=== PATIENT | male | born 1960 | race Caucasian/White ===

== ENCOUNTER 2018-11-06 16:19 | Inpatient (IN) | payer OTHER ==
[~2018-11-06] VITALS: Ht 172.7 cm; Wt 93.1 kg
[2018-11-06 16:28] VITALS: BP 156/72
[2018-11-06] MEDS ORDERED: LIPITOR10 MG PO (16:32)
[2018-11-06 16:48] LABS: URINE BILIRUBIN NEGATIVE (Negative); URINE BLOOD 2+ (Negative); URINE CLARITY CLEAR; URINE COLOR YELLOW; URINE GLUCOSE-RANDOM NEGATIVE (Negative); URINE KETONES NEGATIVE (Negative); URINE LEUKOCYTES-REFLEX TRACE (Negative); URINE NITRITE-REFLEX NEGATIVE (Negative); URINE PROTEIN 2+ (Negative); URINE SPECIFIC GRAVITY 1.015 (1.005-1.030)
[2018-11-06 16:55] LABS: HEMATOCRIT 30.3 % (42.0-52.0); HEMOGLOBIN 9.5 gm/dL (14.0-18.0); MCH 18.9 pg (26.0-34.0); MCHC 31.3 g/dL (28.0-37.0); MCV 60.6 fL (80.0-100.0); MPV 8.5 fl. (7.2-11.1); NUCLEATED RBCS 0 /100WBC; PLATELET COUNT* 163 thou/uL (150-400); RDW-CV 21.1 % (10.5-14.5); WBC 14.8 thou/uL (4.0-11.0)
[2018-11-06 16:56] LABS: HYALINE CASTS 0-3 Few /LPF (None Seen); SQUAMOUS 0-3 Few /LPF (0-3)
[2018-11-06 16:57] LABS: MUCUS None Seen strn/LPF (None Seen); URINE RBC 3-10 Few /HPF (0-2); URINE WBC-REFLEX 6-15 Few /HPF (0-5)
[2018-11-06 16:58] LABS: BACTERIA-REFLEX 1-9 Few /HPF (None Seen); CRYSTALS None Seen /LPF (None Seen)
[2018-11-06 17:02] LABS: CALCIUM 8.7 mg/dL (8.5-10.1); CREATININE 1.2 mg/dL (0.6-1.3); POTASSIUM 4.5 mmol/L (3.5-5.1)
[2018-11-06 17:13] LABS: ALBUMIN 2.6 g/dL (3.4-5.0); INR 1.3; PROTIME 13.8 Seconds (9.20-11.50); TOTAL BILIRUBIN 0.7 mg/dL (<0.1-1.0); TOTAL PROTEIN 7.4 g/dL (6.4-8.2)
[2018-11-06 17:14] LABS: TROPONIN-I LEVEL 2.72 ng/mL (<0.06)
[2018-11-06 17:28] LABS: ABSOLUTE LYMPHOCYTES 0.3 thou/uL (0.8-5.3); ABSOLUTE MONOCYTES 0.3 thou/uL (0.0-1.2); ABSOLUTE NEUTROPHILS 14.2 thou/uL (1.6-8.1); METAMYELOCYTES 1 %; PLATELET ESTIMATE ADEQUATE
[2018-11-06 17:29] LABS: ANISOCYTOSIS 2+
[2018-11-06 17:30] LABS: HYPOCHROMASIA 2+; OVALOCYTES Occasional
[2018-11-06 17:31] LABS: MICROCYTES 3+
[2018-11-06 18:24] LABS: BE -2.3 mmol/L (-2 to +3); PCO2 26.8 mmHg (35.0-45.0); PO2 81.2 mmHg (75.0-100.0); pH 7.495 (7.340-7.450)
[2018-11-06 19:06] VITALS: BP 161/61
[2018-11-06 20:01] LABS: CALCIUM 7.9 mg/dL (8.5-10.1); CREATININE 1.1 mg/dL (0.6-1.3); POTASSIUM 4.3 mmol/L (3.5-5.1)
[2018-11-06 20:03] VITALS: BP 131/67
[2018-11-06 21:00] VITALS: BP 107/59
[2018-11-06 22:00] VITALS: BP 104/57
[2018-11-06 23:00] VITALS: BP 117/72
[2018-11-07] VITALS (37 sets, daily range): BP systolic 109–149; BP diastolic 63–90
[2018-11-07 00:21] LABS: HEMATOCRIT 25.9 % (42.0-52.0); HEMOGLOBIN 8.1 gm/dL (14.0-18.0); MCHC 31.1 g/dL (28.0-37.0); MCV 61.1 fL (80.0-100.0); MPV 8.6 fl. (7.2-11.1); RBC 4.25 mil/uL (4.50-6.00); RDW-CV 21.3 % (10.5-14.5)
[2018-11-07 00:33] LABS: CALCIUM 7.9 mg/dL (8.5-10.1); CREATININE 1.1 mg/dL (0.6-1.3); POTASSIUM 4.4 mmol/L (3.5-5.1)
[2018-11-07 00:42] LABS: ALBUMIN 2.1 g/dL (3.4-5.0); MAGNESIUM 1.9 mg/dL (1.8-2.4); TOTAL BILIRUBIN 0.7 mg/dL (<0.1-1.0); TOTAL PROTEIN 6.4 g/dL (6.4-8.2)
[2018-11-07 00:44] LABS: TROPONIN-I LEVEL 5.25 ng/mL (<0.06)
[2018-11-07 11:46] LABS: BE -4.9 mmol/L (-2 to +3); PCO2 28.1 mmHg (35.0-45.0); PO2 98.3 mmHg (75.0-100.0); pH 7.434 (7.340-7.450)
[2018-11-07 11:49] LABS: ABSOLUTE BASOPHILS 0.1 thou/uL (0.0-0.2); ABSOLUTE LYMPHOCYTES 0.3 thou/uL (0.8-5.3); ABSOLUTE MONOCYTES 1.5 thou/uL (0.0-1.2); ABSOLUTE NEUTROPHILS 14.6 thou/uL (1.6-8.1); BASOPHILS 0.6 %; EOSINOPHILS 0.2 %; HEMATOCRIT 26.3 % (42.0-52.0); HEMOGLOBIN 8.1 gm/dL (14.0-18.0); LYMPHOCYTES 1.8 %; MCH 18.9 pg (26.0-34.0); MONOCYTES 9.1 %; MPV 9.2 fl. (7.2-11.1); NUCLEATED RBCS 0 /100WBC; PLATELET COUNT* 77 thou/uL (150-400); POLYS 88.3 %; RDW-CV 21.3 % (10.5-14.5); WBC 16.6 thou/uL (4.0-11.0)
[2018-11-07 11:55] LABS: CALCIUM 7.7 mg/dL (8.5-10.1); CREATININE 0.9 mg/dL (0.6-1.3); POTASSIUM 3.9 mmol/L (3.5-5.1)
[2018-11-07 12:06] LABS: TROPONIN-I LEVEL 6.31 ng/mL (<0.06)
[2018-11-08] VITALS (29 sets, daily range): BP systolic 104–138; BP diastolic 62–89
[2018-11-08 04:03] LABS: HEMOGLOBIN 8.4 gm/dL (14.0-18.0); MCH 18.6 pg (26.0-34.0); MCV 61.9 fL (80.0-100.0); MPV 9.3 fl. (7.2-11.1); RBC 4.52 mil/uL (4.50-6.00); RDW-CV 22.1 % (10.5-14.5); WBC 13.8 thou/uL (4.0-11.0)
[2018-11-08 04:17] LABS: ALBUMIN 2.2 g/dL (3.4-5.0); CALCIUM 8.4 mg/dL (8.5-10.1); CREATININE 0.9 mg/dL (0.6-1.3); PHOSPHORUS* 3.6 mg/dL (2.5-4.9); POTASSIUM 4.3 mmol/L (3.5-5.1); TOTAL BILIRUBIN 0.4 mg/dL (<0.1-1.0); TOTAL PROTEIN 6.5 g/dL (6.4-8.2)
--- NOTE | 2018-11-08 07:45 | CON ---
[address] [address] CONSULTATION Name: NANCYKIMALONZO Room: [address] ADM IN M.R.#: [id number] Admission: 11/06/18 Attend Phys: Abhijeet Mcmahan MD Discharge: Date of : 62 Report #: [id number] THIS REPORT FOR: //name// CC: Abhijeet Mcmahan Ce [place] DATE OF SERVICE: 11/07/2018 INFECTIOUS DISEASE CONSULTATION ATTENDING PHYSICIAN: Abhijeet Mcmahan M.D. REASON FOR EVALUATION: Gram-positive septicemia. HISTORY OF PRESENT ILLNESS: Chart reviewed, patient examined. This is a 57-year-old with history of hypertension, who otherwise notes very little medical history, has had intermittent issues with back pain. He states dating back to last year, he has had at least 3 episodes and most recently within the past week, was associated with some fevers and chills, he believes. He denies any anorexia or weight loss. He has had some progressive dyspnea, somewhat of a cough, there is no voice, smokes a significant amount throughout the evaluation. He had blood cultures collected now, 2/ with growth of gram-positive cocci. Lactic acid was mildly elevated at 2.3. Did have an elevated troponin at 3.86. CT of the chest showed no evidence of pulmonary embolus. Lungs were actually clear, otherwise chronic changes. CT of the abdomen was generally unrevealing as well. Did undergo x-ray of the lumbar spine that showed absence of compression fractures, spondylolisthesis, some arthrosis at L4-L5 and L5-S1. The white count was mildly elevated due to being somewhat hemodynamically unstable. He was empirically started on antimicrobial therapy with vancomycin. ALLERGIES: None known. MEDICATIONS: Current medicines include cefdinir, vancomycin, pantoprazole, ipratropium and albuterol inhaler, methylprednisolone, p.r.n. analgesics and antiemetics. PAST MEDICAL HISTORY: Hypertension, hyperlipidemia, chronic back pain. SOCIAL HISTORY: Smokes; a 11-trkq-fytv history, nav-hen-jiav packs per day for 40 years. No ethanol. No illicit drug use. FAMILY HISTORY: Noncontributory. REVIEW OF SYSTEMS: Otherwise unremarkable with the exception of the above. PHYSICAL EXAMINATION: [place] [address] CONSULTATION Name: ALONZO SAAB Room: [address] IN [facility].#: [id number] Admission: 11/06/18 Attend Phys: Abhijeet Mcmahan MD Discharge: Date of : 62 Report #: [id number] GENERAL: He is alert. He is in moderate distress. He is diaphoretic, appears somewhat chronically ill, mildly undernourished. VITAL SIGNS: Temperature 99.1 with a T-max of 102.3 last evening, pulse 101, respirations 18, blood pressure 142/79. SKIN: Warm, dry, no rashes. HEENT: Normocephalic. Extraocular muscles are intact. NECK: Supple. LUNGS: Diminished breath sounds. Few scattered crackles. HEART: Tachycardic, regular. I do not appreciate a murmur. ABDOMEN: Protuberant, somewhat firm. There is no overt tenderness. Lower extremities are without significant edema. GENITOURINARY: Deferred. RECTAL: Deferred. LABORATORY DATA: Lactic acid initially 2.3, serially done, now 1.7. Blood cultures as described above. Prealbumin of 4.9. Electrolytes: Sodium 124, potassium 4.4, chloride 92, bicarbonate is 21, anion gap of 11. BUN and creatinine of 26 and 1.1. Glucose 182. AST 56, ALT of 41. Albumin of 2.1, total protein 6.4. Estimated GFR of 69. CBC: White count of 16.0, H and H 8.1 and 25.9, platelets of 98. Compared to admission, white count was 14, hemoglobin 9.5 and platelets of 163. Differential showed lymphocytopenia of 300. Urinalysis 6-15 white cells. Chest x-ray, slight pulmonary congestion. Troponin level elevated at 3.86. Prealbumin of 4.9. ASSESSMENT: Gram-positive septicemia, certainly evidence would be consistent with true positive. We will continue the vancomycin, this should give us adequate coverage. Need to further investigate the back pain with new MRI. He remains quite tenuous at this point. Monitor expectantly. <ELECTRONICALLY SIGNED> By: Eliud Overton MD 11/08/18 0745 0800 [id number] Overton MD /nt
[2018-11-08 08:53] LABS: CHOLESTEROL 82 mg/dL (<200); HDL CHOLESTEROL 6 mg/dL (>40); LDL CHOLESTEROL 40 mg/dL (<100); TC:HDL 13.7 Ratio (Not establshd); TRIGLYCERIDE 183 mg/dL (<150); VLDL 37 mg/dL (<40)
[2018-11-08 08:54] LABS: SERUM ASSESSMENT Clear
--- NOTE | 2018-11-08 11:01 | EKG ---
[place] [address] ELECTROCARDIOGRAM REPORT Name: ALONZO SAAB Room: [address] ADM IN M.R.#: [id number] Admission: 11/06/18 Attend Phys: Abhijeet Mcmahan MD Discharge: Date of : 62 Report #: [id number] THIS REPORT FOR: //name// [facility] ED Test Date: 2018-11-06 Test Time: 16:45:44 Pat Name: ALONZO SAAB Department: Room: [facility] Gender: M Bag Grader: [facility] : 1960 Requested By: Daron Philippe Order Number: [id number] MD: Alonzo Colon Measurements Intervals [place] Rate: 128 P: 10 DC: 110 QRS: 39 QRSD: 100 T: 28 QT: 306 QTc: 447 Interpretive Statements Sinus tachycardia Atrial premature complex No previous ECG available for comparison Electronically Signed On 11-08-2018 11:01:08 CDT by Alonzo Colon [email or web address] <ELECTRONICALLY SIGNED> By: Alonzo Colon MD, [facility] 11/08/18 1101 1645 1645 Alonzo Colon MD, FACC /EPI
[2018-11-08 15:31] LABS: APTT 25.5 Seconds (25.0-31.3); INR 1.1; PROTIME 11.7 Seconds (9.20-11.50)
--- NOTE | 2018-11-08 18:15 | 2DMMODE ---
[place] [address] 2 D/M-MODE ECHOCARDIOGRAM Name: ALONZO SAAB Room: [address] IN .R.#: [id number] Admission: 11/06/18 Attend Phys: Abhijeet Mcmahan, Discharge: Date of : 62 Date of Service: 11/08/18 1815 Report #: [id number] THIS REPORT FOR: //name// APPROVED REPORT Study performed: 11/08/2018 10:54:55 EXAM: Comprehensive 2D, Doppler, and color-flow Echocardiogram Patient Location: In-Patient Room #: 219 Status: routine BSA: 2.07 HR: 74 bpm BP: 127/80 mmHg Rhythm: NSR Other Information Study Quality: Good Indications Acute CA Sepsis Dyspnea Mitral vegetation 2D Dimensions IVSd: 7.93 (7-11mm) LVOT Diam: 19.85 (18-24mm) LVDd: 52.19 mm PWd: 11.14 (7-11mm) Ascending Ao: 31.81 (22-36mm) LVDs: 31.36 (25-40mm) Aortic Root: 29.58 mm Volumes Left Atrial Volume (Systole) LA ESV Index: 43.60 mL/m2 Aortic Valve AoV Peak Samir.: 1.34 m/s AO Peak Gr.: 7.16 mmHg LVOT Max P.05 mmHg AO Mean Gr.: 4.13 mmHg LVOT Mean P.19 mmHg LVOT Max V: 1.33 m/s AO V2 VTI: 29.22 cm LVOT Mean V: 0.80 m/s BETHANY (VTI): 2.80 cm2 LVOT V1 VTI: 26.40 [place] [address] 2 D/M-MODE ECHOCARDIOGRAM Name: ALONZO SAAB Room: [address] IN M.R.#: [id number] Admission: 11/06/18 Attend Phys: Abhijeet Mcmahan, Discharge: Date of : 62 Date of Service: 11/08/18 1815 Report #: [id number] E/A Ratio: 1.42 MV Decel. Time: 230.08 ms MV E Max Samir.: 1.73 m/s MV PHT: 66.72 ms MVA (PHT): 3.30 cm2 TDI E/Lateral E': 19.22 E/Medial E': 19.22 Medial E' Samir.: 0.09 m/s Lateral E' Samir.: 0.09 m/s Pulmonary Valve PV Peak Samir.: 0.91 m/s PV Peak Gr.: 3.32 mmHg Tricuspid Valve RAP Estimate: 5.00 mmHg TR Peak Gr.: 40.39 mmHg RVSP: 45.00 mmHg PA Pressure: 45.00 mmHg Left Ventricle The left ventricle is normal size. There is normal LV segmental wall motion. There is normal left ventricular wall thickness. Left ventricular systolic function is normal. The left ventricular ejection fraction is within the normal range. LVEF is 60-65%. The left ventricular diastolic function is normal. Right Ventricle The right ventricle is normal size. The right ventricular systolic function is normal. Atria Left atrium is moderately dilated. The right atrium size is normal. Aortic Valve Mild aortic valve sclerosis. No aortic regurgitation is present. There is no aortic valvular stenosis. Mitral Valve There is mitral annular calcification. Mild mitral regurgitation. Mitral valve vegetation is present. No evidence of mitral valve stenosis. Tricuspid Valve The tricuspid valve is normal in structure. Mild tricuspid regurgitation. estimated pa pressure 45 [place] [address] 2 D/M-MODE ECHOCARDIOGRAM Name: ALONZO SAAB Room: [address] IN [facility]#: [id number] Admission: 11/06/18 Attend Phys: Abhijeet Mcmahan, Discharge: Date of : 62 Date of Service: 11/08/18 1815 Report #: [id number] Pulmonic Valve The pulmonary valve is normal in structure. There is no pulmonic valvular regurgitation. Great Vessels The aortic root is normal in size. IVC is normal in size and collapses >50% with inspiration. Pericardium There is no pericardial effusion. <Conclusion> LVEF is 60-65%. Left atrium is moderately dilated. Mild aortic valve sclerosis. Mild mitral regurgitation. Mild tricuspid regurgitation. estimated pa pressure 45 mm Hg Mitral valve vegetation is present. <ELECTRONICALLY SIGNED> By: Alonzo Colon MD, [facility] 11/08/181814 14 14 Alonzo Colon MD, FACC /INF
--- NOTE | 2018-11-11 17:49 | CON ---
[address] [address] CONSULTATION Name: NANCYKIMALONZO Room: [address] IN M.R.#: [id number] Admission: 11/06/18 Attend Phys: Abhijeet Mcmahan MD Discharge: 11/08/18 Date of : 62 Report #: [id number] THIS REPORT FOR: //name// CC: Abhijeet Asher CARDIOLOGY CONSULT INDICATION: Non-ST elevation myocardial infarction. HISTORY OF PRESENT ILLNESS: The patient is a very pleasant 57-year-old gentleman with no prior cardiac history. Cardiac risk factors include hypertension, dyslipidemia and chronic tobacco use. The patient was admitted through the Emergency Room yesterday with complaints of worsening shortness of breath and cough with brown sputum. He had had fevers and night sweats. He denied weight loss. Chest x-ray suggested bilateral perihilar infiltrates consistent with pneumonia. NT-proBNP was elevated consistent with heart failure. The patient's chest x-ray did not show significant pulmonary edema. The patient was placed on a heparin drip per cardiology protocol and empiric IV antibiotics. In the ICU, presently, he is clinically improving. Throughout this episode, he denied any chest pain. He has been having some chronic lower back pain since March. He was without other cardiac complaint. Of note, he was hypoxic in the Emergency Room. EKG shows sinus tachycardia with no significant ST segment changes. PAST MEDICAL HISTORY: 1. Hypertension. 2. Hyperlipidemia. 3. Chronic tobacco use. 4. Chronic back pain. FAMILY HISTORY: Noncontributory. SOCIAL HISTORY: The patient smokes 2-1/2 packs of cigarettes daily, does not drink alcohol. ALLERGIES: None. HOME MEDICATIONS: Atorvastatin 10 mg at bedtime. REVIEW OF SYSTEMS: He reports fevers and night sweats. He has mild anorexia. He reports cough without chest pain. He has production of brown sputum. He denies nausea or vomiting. There is no hematemesis or melena. He has shortness of breath at rest and dyspnea on exertion without significant orthopnea. He was without other [place] [address] CONSULTATION Name: ALONZO SAAB Room: [address] IN [facility].#: [id number] Admission: 11/06/18 Attend Phys: Abhijeet Mcmahan MD Discharge: 11/08/18 Date of : 62 Report #: [id number] PHYSICAL EXAMINATION: VITAL SIGNS: Blood pressure 142/79 and pulse 108. GENERAL: This is a pleasant gentleman, who appears acutely ill, without distress. HEENT: Head is normocephalic, atraumatic. Extraocular muscles are intact. Mucous membranes are moist. NECK: Shows no jugular venous distention. There are no carotid bruits. CHEST: Reveals diminished breath sounds throughout, without wheezes or rales. CARDIAC: Reveals a tachycardic rate, without gallop or murmur. Rhythm is regular. ABDOMEN: Reveals a protuberant abdomen with tympany. The patient has normal bowel sounds. EXTREMITIES: Show no significant edema. Peripheral pulses 1+. SKIN: Dry. LABORATORY DATA: A 12-lead EKG shows sinus rhythm without significant ST or T-wave abnormalities. Initial troponin was 2.72 and subsequently 3.86 and 5.25. NT-proBNP is elevated at 2440. IMPRESSION AND RECOMMENDATIONS: 1. Non-ST elevation myocardial infarction. I suspect that the patient has significant underlying coronary artery disease. Agree with heparin drip in the setting of a non-ST elevation myocardial infarction. We will add aspirin and beta berenice at this time. 2. Acute heart failure with elevated NT-proBNP. We will obtain echocardiogram. At this point in time, the patient does not appear appreciably volume overloaded. We will follow clinically. 3. Hypertension. Blood pressure mildly elevated. Should improve with beta blockade. 4. Pneumonia/bronchitis, per primary physician. 5. Chronic tobacco use, cessation advised. Further evaluation with cardiac catheterization should likely be pursued once the patient is clinically stable and improved from the standpoint of sepsis and pneumonia. He remains hemodynamically stable at this time. <ELECTRONICALLY SIGNED> By: Reuben Catherine MD, FACC 11/11/18 1749 0945 [id number] Catherine MD, FACC /nt
== END 2018-11-08 21:36 | disposition short-term general hospital (02) | DRG 871 ==
LOC: M.ERS 16:19 → M.2W 18:16 → M.TBA-ER 18:16 → M.ICU 19:00 → M.2W 11-08 10:38 → M.ICU 11-08 15:13
PROVIDERS: Emergency Medicine; Family Medicine; Surgery; ADMIT Internal Medicine
DX: A41.1 Sepsis due to other specified staphylococcus (principal); I21.4 Non-ST elevation (NSTEMI) myocardial infarction; J96.01 Acute respiratory failure with hypoxia; J15.9 Unspecified bacterial pneumonia; I63.40 Cerebral infarction due to embolism of unspecified cerebral artery; E87.1 Hypo-osmolality and hyponatremia; E87.2 Acidosis; J44.0 Chronic obstructive pulmonary disease with (acute) lower respiratory infection; E44.0 Moderate protein-calorie malnutrition; A41.89 Other specified sepsis; E78.5 Hyperlipidemia, unspecified; F17.210 Nicotine dependence, cigarettes, uncomplicated; M54.9 Dorsalgia, unspecified; G51.0 Bell's palsy; D69.6 Thrombocytopenia, unspecified; I05.9 Rheumatic mitral valve disease, unspecified; E83.51 Hypocalcemia; I11.0 Hypertensive heart disease with heart failure; I50.9 Heart failure, unspecified; E27.8 Other specified disorders of adrenal gland; M46.86 Other specified inflammatory spondylopathies, lumbar region; Z68.31 Body mass index [BMI] 31.0-31.9, adult; Z71.6 Tobacco abuse counseling; Z79.899 Other long term (current) drug therapy